=== PATIENT | female | born 1985 | race Caucasian/White ===

== ENCOUNTER 2020-12-01 14:58 | Emergency (ER) | payer MEDICAID ==
[~2020-12-01] VITALS: Ht 152.4 cm; Wt 68.0 kg
--- NOTE | 2020-12-01 14:58 | NUR ---
Patient triaged and placed in waiting room. VSS and patient appears in no acute distress at this time. Accompanied by self , awaiting available bed, and MD notified of need for MSE.
--- NOTE | 2020-12-01 15:00 | NUR ---
Pt brought by self, A&Ox4,pt presents to ER with generalized rash, denies SOB, pt afebrile , skin pink and warm,will cont to monitor.
[2020-12-01 15:39] VITALS: BP_SYST 112
--- NOTE | 2020-12-01 16:20 | NUR ---
Dr Proctor evaluating patient at bedside
--- NOTE | 2020-12-01 17:37 | NUR ---
Patient given written and verbal discharge instructions and verbalizes understanding. ER MD discussed with patient the results and treatment provided. Patient in stable condition. ID arm band removed. No Rx given. Patient educated on pain management and to follow up with PMD. Pain Scale 0/10. Opportunity for questions provided and answered. Medication side effect fact sheet provided.
[2020-12-01 17:38] VITALS: BP_SYST 112
== END 2020-12-01 17:37 | disposition home or self-care (01) ==
LOC: SED 14:58
DX: R21 Rash and other nonspecific skin eruption (principal); Z88.0 Allergy status to penicillin
CPT/HCPCS: 81025; 99282